=== PATIENT | male | born 1995 | race Caucasian/White ===

== ENCOUNTER 2016-11-03 00:08 | Day surgery (SDC) | payer OTHER ==
[2016-11-03] MEDS: KETAMINE 100 MG/10 ML SYR IVP ONE ×2 (00:20→00:33)
[2016-11-03] MEDS ORDERED: TDAP ADULT 0.5 ML INJ (BOOSTRIX) IM ONE (00:20)
[2016-11-03] MEDS ORDERED: IOPAMIDOL (ISOVUE-300) 100 ML BTL ONE (00:20)
[2016-11-03] MEDS ORDERED: ONDANSETRON 4 MG/2 ML VIAL ONE ×2 (00:21→07:26)
[2016-11-03] MEDS ORDERED: LET GEL TOPICAL 1 EA SYR TP ONE (00:21)
--- NOTE | 2016-11-03 00:22 | EDPHY ---
H & P Time Seen by Provider: 11/03/16 00:18 HPI/ROS: HPI The patient presents brought in by friends and activated as a limited trauma activation after a fall from a 15 foot balcony onto concrete which occurred about 10 minutes prior to his arrival in the ER. He was drinking alcohol with friends when he went to sit on the balcony and fell off. He fell onto his outstretched left arm and is complaining now of wrist pain with an obvious wrist deformity. He is not sure if he has lost consciousness. The pain in his wrist is diffuse, aching without any numbness or tingling. Klonopin tonight as well REVIEW OF SYSTEMS Constitutional: No fever, no chills. Eyes: No discharge. ENT: No sore throat. Cardiovascular: No chest pain, no palpitations. Respiratory: No cough, no shortness of breath. Gastrointestinal: No abdominal pain, no vomiting. Genitourinary: No hematuria. Musculoskeletal: No back pain. Skin: No rashes. Neurological: No headache. PMHx: Asthma, anxiety TRAUMA PHYSICAL General Appearance: Alert, appears intoxicated Head: Abrasion just below left nostril, chin abrasion Eyes: Pupils equal, round, reactive ENT, Mouth: No hemotypanium, no oral trauma Neck: Non- tender, trachea midline Respiratory: No chest wall tenderness, no subcutaneous air, lungs clear bilaterallty Cardiovascular: Regular rate and rhythm Abdomen: Abdomen is soft and non-tender, pelvis stable Skin: Left knee with multiple superficial lacerations Back: No midline T/L/S pain Extremities: Obvious deformity left wrist with abrasions with no laceration, 2 + radial pulses, full range of motion of fingers Neurological: A&Ox3, GCS=15,normal motor function with 5/5 strength in all 4 extremities, normal sensory exam Source: Patient, Other - Medical/Surgical History Hx Asthma: No Hx Chronic Respiratory Disease: No Hx Diabetes: No Hx Cardiac Disease: No Hx Renal Disease: No Hx Cirrhosis: No Hx Alcoholism: No Hx HIV/AIDS: No Hx Splenectomy or Spleen Trauma: No - Social History Smoking Status: Never smoked Allergies/Adverse Reactions: No Known Allergies Allergy (Unverified 09/23/15 21:24) Home Medications: Medication Instructions Recorded AZITHROMYCIN [Z-PACK] 250 mg PO DAILY #6 tab 08/16/16 Albuterol [Proventil Inhaler HFA 1 - 2 puffs IH Q4H #1 mdi 08/16/16 (*)] Flonase Nasal [place] 08/16/16 Guaifenesin [Guaifenesin ER] 600 mg PO BID #14 tab.er.12h 08/16/16 Hydrocodone/APAP 5/325 [[place] 1 - 2 tab PO Q4H PRN #10 tab 08/16/16 5/325] Ibuprofen [Motrin (*)] 800 mg PO Q6-8PRN #14 tab 08/16/16 KLONOPIN 08/16/16 Sertraline HCl 08/16/16 ZYRTEC 08/16/16 predniSONE 60 mg PO DAILY #15 tab 08/16/16 Medical Decision Making - Diagnostics Imaging Results: CT head without contrast, CT C-spine without contrast both normal, discussed with the radiologist. CT chest abdomen pelvis with contrast show no acute injuries, discussed with the radiologist. #1 X-ray left wrist two views shows comminuted displaced distal radius fracture #2 X-ray left wrist two views shows comminuted displaced distal radius fracture , slightly better anatomic alignment #3 X-ray left wrist two views shows comminuted displaced distal radius fracture , slightly improved anatomic alignment. Radiology interpretation is pending. Procedures: Procedure: Trauma ultrasound. Limited echocardiogram for pericardial effusion. Limited bedside ultrasound was performed and interpreted by myself for the indication of: thoracoabdominal trauma utilizing the thoracoabdominal emergency ultrasound protocol. Limited transthoracic echocardiogram: The pericardium was visualized and found to be negative for pericardial fluid. The study was negative for pericardial effusion. Limited abdominal ultrasound for blunt abdominal trauma. 1) The right upper quadrant was visualized and was found to be negative for intraperitoneal fluid. 2) The left upper quadrant was visualized and found to be negative for intraperitoneal fluid. The study was felt to be negative for free intraperitoneal fluid. Limited pelvic ultrasound was conducted for abdominal trauma. The bladder was visualized and did not reveal an anechoic area outside of the adjacent urinary bladder. The study was felt to be negative for free intraperitoneal fluid. ED Course/Re-evaluation: 12:15 a.m.- I met the patient at the bedside upon his arrival. He is brought in by friends. He is intoxicated with multiple injuries. He is placed in a C- collar. He has an obvious deformity of his left wrist. Fast was performed by me and is negative. 2:30 a.m.- Reduction was performed ketamine sedation. There is slight improvement in the patient's alignment. The fracture is still unstable. The case is discussed with the orthopedist turbinated bone grinder Dr. Fletcher who recommends consult with the hand specialist as the patient will likely need an operation. I consulted with Dr. Jeramy Rod the hand surgeon on-call who recommended repeat closed reduction in the emergency room to improved alignment. 5:30 a.m.- The patient was placed in traction with finger traps for about 1 hour. Image with C-arm shows improved anatomic positioning of wrist. Patient is then placed in splint and post reduction films obtained which show minimally improved alignment. I feel the fracture fragments are not stable and this is causing recurrent displacement of the fracture. I reconsulted the orthopedist turbinated bone grinder Dr. Fletcher who does not feel that closed reduction in the OR is indicated as likely we will be in a similar situation and this fracture is not reducible. 6:00 a.m.- I reconsulted Dr. Rod of Hand surgery. Because the fracture is unstable, he agrees that the patient should go to the operating room. We plan to transfer the patient from the emergency room to the OR later this morning. It is unclear if the patient will require admission to the hospital, it will depend on his pain postoperatively. Because of this, I have consulted the trauma surgeon turbinated bone grinder Dr. Fish. She will come to evaluate the patient in the emergency room and if the patient requires admission to the hospital postoperatively, we will plan on admitting to the trauma service. Differential Diagnosis: This is a 21-year-old male who presents as limited trauma activation after a fall from 15 foot [facility] with signs of multiple traumatic injuries. - Data Points Laboratory Results: Laboratory Results 11/03/16 00:20 11/03/16 00:20 11/03/16 11/03/16 00:20 00:20 WBC 17.87 10^3/uL H 10^3/uL (3.80-9.50) RBC 6.16 10^6/uL 10^6/uL (4.40-6.38) Hgb 19.5 g/dL H g/dL (13.7-17.5) Hct 55.3 % H % (40.0-51.0) MCV 89.8 fL fL (81.5-99.8) MCH 31.7 pg pg (27.9-34.1) MCHC 35.3 g/dL g/dL (32.4-36.7) RDW 15.4 % H % (11.5-15.2) Plt Count 424 10^3/uL H 10^3/uL (150-400) MPV 10.6 fL fL (8.7-11.7) Neut % (Auto) 61.4 % % (39.3-74.2) Lymph % (Auto) 26.7 % % (15.0-45.0) Bennett % (Auto) 8.2 % % (4.5-13.0) Eos % (Auto) 1.7 % % (0.6-7.6) Baso % (Auto) 0.5 % % (0.3-1.7) Nucleat RBC Rel Count 0.0 % % (0.0-0.2) Absolute Neuts (auto) 10.98 10^3/uL H 10^3/uL (1.70-6.50) Absolute Lymphs (auto) 4.78 10^3/uL H 10^3/uL (1.00-3.00) Absolute Monos (auto) 1.46 10^3/uL H 10^3/uL (0.30-0.80) Absolute Eos (auto) 0.30 10^3/uL 10^3/uL (0.03-0.40) Absolute Basos (auto) 0.09 10^3/uL 10^3/uL (0.02-0.10) Absolute Nucleated RBC 0.00 10^3/uL 10^3/uL (0-0.01) Immature Gran % 1.5 % H % (0.0-1.1) Immature Gran # 0.26 10^3/uL H 10^3/uL (0.00-0.10) Sodium 139 mEq/L mEq/L (134-144) Potassium 4.0 mEq/L mEq/L (3.5-5.2) Chloride 99 mEq/L mEq/L (97-110) Carbon Dioxide 24 mEq/l mEq/l (22-31) Anion Gap 16 mEq/L mEq/L (8-16) BUN 5 mg/dL L mg/dL (7-23) Creatinine 0.7 mg/dL mg/dL (0.7-1.3) Estimated GFR > 60 Glucose 95 mg/dL mg/dL (70-100) Calcium 10.5 mg/dL H mg/dL (8.5-10.4) Ethyl Alcohol 169 mg/dL H mg/dL (0-10) Medications Given: Discontinued Medications Diphtheria/Tetanus/Acell Pertussis (Boostrix) 0.5 ml IM .ONCE ONE Stop: 11/03/16 00:21 Last Admin: 11/03/16 00:34 Dose: 0.5 ml Sodium Chloride (Ns) 1,000 mls @ 0 mls/hr IV ONCE ONE PRN Reason: Wide Open Stop: 11/03/16 00:36 Last Admin: 11/03/16 00:25 Dose: 1,000 mls Ketamine HCl (Ketamine) 15 mg IVP EDNOW ONE Stop: 11/03/16 00:20 Last Admin: 11/03/16 00:20 Dose: 15 mg Ondansetron HCl (Zofran) 4 mg IVP EDNOW ONE Stop: 11/03/16 00:36 Last Admin: 11/03/16 00:46 Dose: 4 mg Departure - Departure Disposition: To OP Cath/Surgery Clinical Impression: Distal radius fracture, left Qualifiers: Encounter type: initial encounter Fracture type: closed Fracture morphology: unspecified fracture morphology Qualified Code(s): S52.502A - Unspecified fracture of the lower end of left radius, initial encounter for closed fracture Fall from, out of or through balcony, initial encounter Qualifiers: Encounter type: initial encounter Qualified Code(s): W13.0XXA - Fall from, out of or through balcony, initial encounter Condition: Good Referrals: NOT,SURE [Other] - As per Instructions
[2016-11-03 00:32] LABS: % IMMATURE GRANULYOCYTES 1.5 % (0.0-1.1); ABSOLUTE IMMATURE GRANULOCYTES 0.26 10^3/uL (0.00-0.10); ADD DIFF? NO; ADD MORPH? NO; ADD SCAN? NO; ATYPICAL LYMPHOCYTE FLAG 0 (0-99); FRAGMENT RBC FLAG 0 (0-99); HEMATOCRIT 55.3 % (40.0-51.0); HEMOGLOBIN 19.5 g/dL (13.7-17.5); LEFT SHIFT FLG 10 (0-99); LIPEMIA HEMOLYSIS FLAG 90 (0-99); MEAN CELL HEMOGLOBIN 31.7 pg (27.9-34.1); MEAN CELL HEMOGLOBIN CONCENTR. 35.3 g/dL (32.4-36.7); MEAN CELL VOLUME 89.8 fL (81.5-99.8); MEAN PLATELET VOLUME 10.6 fL (8.7-11.7); PLATELET CLUMPS FLAG 10 (0-99); PLATELET COUNT 424 10^3/uL (150-400); RED BLOOD CELL COUNT 6.16 10^6/uL (4.40-6.38); RED CELL DISTRIBUTION WIDTH 15.4 % (11.5-15.2)
[2016-11-03] MEDS ORDERED: NS 1,000 ML IV ONE (00:35)
[2016-11-03] MEDS ORDERED: ONDANSETRON 4 MG/2 ML VIAL IVP ONE (00:35)
[2016-11-03 00:42] LABS: ANION GAP 16 mEq/L (8-16); CALCIUM 10.5 mg/dL (8.5-10.4); CARBON DIOXIDE 24 mEq/l (22-31); CHLORIDE 99 mEq/L (97-110); CREATININE 0.7 mg/dL (0.7-1.3); ETHANOL SERUM 169 mg/dL (0-10); GLOMERULAR FILTRATION RATE > 60; GLUCOSE 95 mg/dL (70-100); SODIUM 139 mEq/L (134-144)
[2016-11-03] MEDS ORDERED: KETAMINE 100 MG/10 ML SYR ONE (01:29)
[2016-11-03] MEDS ORDERED: ceFAZolin 1 GM VIAL IVP ONE (06:12)
[2016-11-03] MEDS ORDERED: CEFAZOLIN 1 GM/DEXTROSE/50 ML BAG IV ONE (06:16)
[2016-11-03 06:49] VITALS: BP 126/88; PULSE 66; RESP 16; TEMP 97.9; O2SAT 94
[2016-11-03] MEDS ORDERED: ACETAMINOPHEN 325 MG TAB PO PRN (06:58)
[2016-11-03] MEDS ORDERED: ONDANSETRON 4 MG/2 ML VIAL IVP PRN (06:58)
[2016-11-03] MEDS ORDERED: HYDROCODONE/APAP 5/325 TAB PO PRN (06:58)
[2016-11-03] MEDS ORDERED: MIDAZOLAM 2 MG/2 ML VIAL ONE (07:21)
[2016-11-03] MEDS ORDERED: PROPOFOL/EMULSION 500 MG/50 ML BOTTLE IV ONE (07:26)
[2016-11-03] MEDS ORDERED: fentaNYL 100 MCG/2 ML INJ ONE (07:26)
[2016-11-03] MEDS ORDERED: DEXAMETHASONE 4 MG/ML VIAL ONE (07:26)
[2016-11-03] MEDS ORDERED: LIDOCAINE 2% 100 MG/5 ML SYR ONE (07:26)
[2016-11-03] MEDS ORDERED: LIDOCAINE 2% JELLY 5 ML TUBE ONE (07:26)
[2016-11-03] MEDS ORDERED: ceFAZolin 1 GM VIAL ONE (07:33)
--- NOTE | 2016-11-03 07:40 | GHP ---
[f rep st] HISTORY AND PHYSICAL DATE OF ADMISSION: 11/03/2016 CHIEF COMPLAINT: Fall from 15 feet, limited trauma. HISTORY OF PRESENT ILLNESS: The patient is a 21-year-old who had a 40 and then went out with his friends. He had a pitcher of beer. He was then sitting on a balcony when he fell back approximately 15 feet and landed on concrete. He remembers falling. He got up and went inside the house and told his friends he needed to go to the emergency room. He presented to the emergency room as a limited trauma around midnight. I was first contacted about the patient around 6:15 a.m. In the [facility], he had a CT scan of his head, C-spine, chest, and abdomen. He also had x-rays of his wrist. It was found that he has a radius fracture of the left arm. Orthopedics has been consulted and will be taking him to the operating room. Besides pain in his arm and wrist, the patient complains of right jaw pain and left great toe pain. PAST MEDICAL HISTORY: Anxiety. PAST SURGICAL HISTORY: EGD. ALLERGIES: No known drug allergies. MEDICATIONS: Klonopin. 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 He does not use cigarettes, tobacco use by itself, but will have nicotine mixed with marijuana and will take a few hits off a bong multiple times a week. He does drink alcohol. FAMILY HISTORY: Both of his parents are healthy. REVIEW OF SYSTEMS: Significant for anxiety. Otherwise, 10-point review of systems is negative except per HPI. PHYSICAL EXAMINATION: VITAL SIGNS: Temperature 36.6, pulse 66, blood pressure 126/88, respiratory rate 16, and 94% on room air. GENERAL: Pleasant well- groomed man sitting in [facility]. He is appropriate and pleasant. HEENT: Normocephalic. No lacerations noted. His pupils are equal, round, reactive to light and accommodation. Ears: No hemotympanum or otorrhea. Nose: No rhinorrhea. Mouth: He states that he does have some jaw pain on the right side. I do not feel any crepitus over this area. No obvious chipped teeth. His tongue is dry. NECK: No cervical spine tenderness. He has full range of motion. He was not in a C-collar when I saw him. LUNGS: Clear to auscultation bilaterally. No increased work of breathing. No ecchymosis or abrasions over his chest. CARDIAC: Regular rate. No peripheral edema. BACK: No spine tenderness. There are no abrasions on his back. MUSCULOSKELETAL: He has pain in his left arm, but he has sensation in his hand and can move everything. He has pain in his left great toe and has some ecchymosis in this area. Otherwise 5/5 strength in upper and lower extremities. NEURO: Cranial nerves 2-12 intact. ABDOMEN: Bowel sounds present. Soft, nontender, nondistended. PSYCH: Mood and affect normal. IMAGING: Results reviewed. The reports of the CT scans are not up yet, but I do not see any intracranial abnormalities, any solid organ injury or pneumothorax. LABORATORY DATA: His blood alcohol level at midnight was 169. IMPRESSION AND PLAN: The patient is a 21-year-old who fell 15 feet and landed on his left wrist which is fractured. He is going to the OR with Dr. Rod this morning. If pain is controlled, the patient will be able to discharge home and the patient states that his friends will stay with him tonight after surgery. If this is not the case or if pain is not controlled, then he will be admitted to the trauma service. If no other injuries are found, then Orthopedics will take over tomorrow. We discussed having an x-ray of his foot before surgery or after surgery and instead, Dr. Rod will fluoro his left great toe during surgery to assure that there is not a fracture. I personally reviewed the films with Dr. Mejia. About 90% of the jaw is visible. There is no malalignment of his jaw or obvious fracture. /[id number]/MODL MTDD
[2016-11-03] MEDS ORDERED: BUPIVACAINE 0.5% 30 ML SDV ONE (07:41)
--- NOTE | 2016-11-03 07:51 | GDS ---
[f rep st] TRANSFER SUMMARY CHIEF COMPLAINT: Left wrist pain and deformity. HISTORY OF PRESENT ILLNESS: The patient is seen at the request of Dr. Angie Lopez in the [facility] room at [facility]. He was out with his friends late in the evening, early in the morning, this morning, on a balcony and fell 15 feet onto his left wrist. He apparently did no t have any other associated injury. He was seen and evaluated by the trauma team, had multiple radi ographic studies. the most significant injury was a significantly deformed intraarticular distal ra dius fracture on the left side. I was asked to evaluate him. Dr. Lopez attempted reduction twice in order to try to provisionally reduce the risk, which could temporize the situation, but the wris t was quite unstable and immediately fell back into a very deformed position, and so we are taking t he patient to the operating room. PAST MEDICAL HISTORY: History of anxiety. PAST SURGICAL HISTORY: The patient has had an upper endoscopy with no specific diagnosis related to that. MEDICATIONS: P.r.n. Klonopin for anxiety. ALLERGIES: No known drug allergies. FAMILY AND SOCIAL HISTORY: The patient is right hand dominant. The affected hand in this case is t he left side. He does drink alcohol. REVIEW OF SYSTEMS: The patient denies loss of consciousness. Generalized symptoms, HEENT, cardiova scular, gastrointestinal all normal. MUSCULOSKELETAL: Positive for left wrist deformity. PHYSICAL EXAMINATION: GENERAL: The patient is alert, oriented and appropriate. VITAL SIGNS: His vitals are normal. He is appropriately interactive. MUSCULOSKELETAL: Shows a deformed left wrist, with no open wounds. VASCULAR: Shows good radial pulses. Fingers warm and pink. Capillary refil l less than 2 seconds in all digits. NEUROLOGIC: Shows he has some minor diminished sensation in t he median nerve distribution, which would be expected in this case. No diminished sensation, ulnar nerve distribution. Motor function appears to be normal, although, cannot be completely accurately tested given the deformity of the wrist. SKIN: No open wounds. LYMPHATIC: No baseline lymphedema. SPINE: Cervical, thoracic and lumbar spine, no tenderness. IMAGING: Radiographs show a fracture, dislocation of the wrists with significant compromise of the radial column. The lunate is in a defect, in what was the scaphoid facet and the wrist is translate d significantly radially, this is quite deformed. ASSESSMENT: Fracture/dislocation of left wrist with intraarticular complex fracture. PLAN/RECOMMENDATIONS: We are going to take the patient to the operating room for provisional floral designer al fixation, this will be a temporizing measure. He will need more definitive fixation at a later d ate. I have discussed with him the risks, benefits and alternatives, including but not limited to i nfection, neurovascular injury, nonunion, malunion, arthritis and necessity for future operations. He understands and wishes to proceed and we are going to proceed with surgery emergently. /[id number]/MODL
[2016-11-03] MEDS ORDERED: OXYCODONE/APAP 5/325 TAB ONE ×2 (09:13→10:16)
--- NOTE | 2016-11-03 09:26 | GOP ---
[f rep st] OPERATIVE REPORT DATE OF OPERATION: SURGEON: Jesus Rod MD ANESTHESIA: General. PREOPERATIVE DIAGNOSIS: Fracture dislocation of left wrist. POSTOPERATIVE DIAGNOSIS: Fracture dislocation of left wrist. PROCEDURE PERFORMED: Closed reduction with placement of external fixator for left intraarticular di stal radius fracture. FINDINGS: SPECIMENS: None. ESTIMATED BLOOD LOSS: After finishing the case: 0. INDICATIONS: The patient fell from a 15-20 foot height off a balcony and was brought to [facility] around midnight. The emergency room physician attempted closed reduction, but was u nable to get the very unstable wrist in a position of acceptability and the patient did have some nu mbness so I recommended that we emergently take him to the operating room for a provisional stabiliz ation procedure which in this case was closed reduction and external fixation. I discussed with he and his parents the risks, benefits and alternatives of operative intervention which included, but a re not limited to, infection, neurovascular injury, nonunion, malunion, compartment syndrome, perman ent nerve injury, and necessity for future operations. Proper informed consent was obtained and jose miguel carlie in the chart. DESCRIPTION OF PROCEDURE: The patient was taken to the operating room after being appropriately pierce ntified in the preoperative area and the operative extremity marked. He was laid supine on the oper ating table where general anesthesia was initiated. A time-out was performed and the left upper ext remity prepped and draped in a sterile fashion. The patient received an additional 1 g of IV Ancef antibiotic. He had received 1 g previously in the operating room. The limb was exsanguinated using an Esmarch bandage. Tourniquet was inflated to 250 mmHg. I made 2 small incisions over the second metacarpal. I placed 2 pins in the metacarpal from the Synthes small external fixator set. I made another incision in the bare spot of the radial shaft more proximally. I exposed the bone, protect ed the radial sensory nerve and placed 2 pins in this area. These pins were connected with a distal radius external fixator assembly. The wrist was reduced and we tightened all the components of the external fixator. This certainly got the wrist in a dramatically improved position. There was a l arge radial column fragment which was translated and there is a bit of a shear component injury, but this was definitely back out to length and in a good position and should take the pressure off his median and ulnar nerve. A portion of the ex-fix sites were closed using interrupted suture. The to urniquet was taken down. The fingers were warm and pink with good radial pulses. Soft dressings we re placed over the entirety of the construct, and local anesthetic was injected into the area using about 20 cc of 0.5% Marcaine without epinephrine. Total tourniquet time was 28 minutes. The patient was awakened and taken to the recovery having marnie erated the procedure well without any apparent complications. All sponge and needle counts were cor rect after finishing the operation. PLAN: The patient is going to come back to my office on Friday and we are going to set up defini tive open reduction, internal fixation about a week from then. The patient is going to have a jyothi kennedy survey by the trauma team following awakening from anesthesia. He will likely go home today. I have talked to his parents and his father is flying in from [place] later Friday. /[id number]/MODL
--- NOTE | 2016-11-03 10:24 | TRAUMAPN ---
- Problem/Surgery Performed (1) Asthma Qualifiers: Asthma severity: A Asthma complication type: A Assessment/Plan: S/p fall from second story left wrist fx s/p ex-fix with mild ulnar neuropathy Chest pain (negative chest CT)hx pneumonia/+ tobacco + THC/hx asthma Left great toe pain/bruising-rule out fracture Plan: Plain films left great toe/trial of ambulation Cassius would prefer returning home with friends if possible and I think he is safe to do so. Will check left toe films I advised him to abstain from alcohol, tobacco and marijuana use FU with Dr. Rod for management of his left wrist fracture. Subjective: c/o pain left wrist and left big toe pre-injury jaw pain (hx TMJ) pain with deep inspiration (neg chest CT) Objective: Vital Signs Temp Pulse Resp BP Pulse Ox 36.6 C 66 16 126/88 H 94 11/03/16 06:41 11/03/16 06:41 11/03/16 06:41 11/03/16 06:41 11/03/16 06:41 11/02/16 11/03/16 11/04/16 05:59 05:59 05:59 Intake Total 1000 Balance 1000 - C-Spine Clearance Cervical Spine Cleared: Yes Provider who Cleared Cervical Spine: Dr. Fish Physical Exam - Physical Exam General Appearance: no apparent distress EENT: other (abrasion upper lip/chin, no suturable laceration, no deformity/ focal tenderness or crepitance) Respiratory: lungs clear, normal breath sounds Cardiac/Chest: regular rate, rhythm Abdomen: non-tender, soft Extremities: other (left wrist ex-fix/radial pulse palpable/weakness left 4th/ 5th digits with hypoestesia 5th digit. Left great toe bruised/tender over the DIP joint) Neuro/Psych: alert, normal mood/affect, oriented x 3
[2016-11-04] MEDS ORDERED: ENOXAPARIN 40 MG/0.4 ML SYR SC SCH (09:00)
== END 2016-11-03 11:45 | disposition home or self-care (01) ==
LOC: UNDOADMOB 06:30 → FSGY 06:30 → F3N 15:00
PROVIDERS: ATTEND Surgery
PROC: 0PSJ35Z Reposition Left Radius with External Fixation Device, Percutaneous Approach (ICD-10-PCS; 2016-11-03)
PROC: 0PSJXZZ Reposition Left Radius, External Approach (ICD-10-PCS; principal; 2016-11-03 07:27)
DX: S52.572A Other intraarticular fracture of lower end of left radius, initial encounter for closed fracture (principal); S52.612A Displaced fracture of left ulna styloid process, initial encounter for closed fracture; S92.425A Nondisplaced fracture of distal phalanx of left great toe, initial encounter for closed fracture; W13.0XXA Fall from, out of or through balcony, initial encounter
CPT/HCPCS: 96374; C1713; G0480; J0690; J1100; J2001; J2250; J2405; J2704; J3010; L0172; Q9967

== ENCOUNTER 2017-02-09 11:50 | Emergency (ER) | payer OTHER ==
[2017-02-09 11:58] VITALS: PULSE 89; RESP 18; O2SAT 96
[2017-02-09] MEDS ORDERED: IBUPROFEN 200 MG TAB PO ONE (12:16)
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
[2017-02-09 13:10] VITALS: BP 132/83; TEMP 98.4
== END 2017-02-09 13:18 | disposition home or self-care (01) ==
DX: S49.91XA Unspecified injury of right shoulder and upper arm, initial encounter (principal); S62.002S Unspecified fracture of navicular [scaphoid] bone of left wrist, sequela; W01.0XXA Fall on same level from slipping, tripping and stumbling without subsequent striking against object, initial encounter

== ENCOUNTER 2017-05-18 09:37 | Emergency (ER) | payer OTHER ==
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
[2017-05-18 11:02] VITALS: BP 134/82; PULSE 90; RESP 15; TEMP 98.8; O2SAT 92
== END 2017-05-18 11:03 | disposition home or self-care (01) ==
DX: S63.502A Unspecified sprain of left wrist, initial encounter (principal); W18.39XA Other fall on same level, initial encounter; Y92.039 Unspecified place in apartment as the place of occurrence of the external cause
CPT/HCPCS: L3807